=== PATIENT | male | born 1980 | race Caucasian/White ===

== ENCOUNTER → 2020-05-22 10:49 | Outpatient (BNVA) | payer MEDICAID, SELFPAY | PROVIDERS: PCP Internal Medicine; Referring Provider Internal Medicine; Visit Provider Internal Medicine Cardiovascular Disease | DX: I48.0 Paroxysmal atrial fibrillation (principal); E66.01 Morbid (severe) obesity due to excess calories; G47.33 Obstructive sleep apnea (adult) (pediatric) | CPT/HCPCS: 99212 ==

== ENCOUNTER → 2020-07-15 09:58 | Outpatient (BNVA) | payer MEDICAID, SELFPAY | PROVIDERS: PCP Internal Medicine; Referring Provider Internal Medicine Cardiovascular Disease; Visit Provider Nurse Practitioner Family ==

== ENCOUNTER → 2020-09-30 09:40 | Outpatient (BNVA) | payer MEDICAID, SELFPAY | PROVIDERS: PCP Internal Medicine; Visit Provider Nurse Practitioner Family ==

== ENCOUNTER → 2020-11-27 10:49 | Outpatient (BNVA) | payer MEDICAID, SELFPAY | PROVIDERS: PCP Internal Medicine; Referring Provider Internal Medicine; Visit Provider Internal Medicine Cardiovascular Disease | DX: E66.01 Morbid (severe) obesity due to excess calories (principal); Z68.41 Body mass index [BMI] 40.0-44.9, adult | CPT/HCPCS: 93005; 99212 ==

== ENCOUNTER → 2021-04-07 10:24 | Outpatient (BNVA) | payer MEDICAID, SELFPAY | PROVIDERS: PCP Internal Medicine; Referring Provider Internal Medicine; Visit Provider Nurse Practitioner Family ==

== ENCOUNTER → 2021-11-26 10:53 | Outpatient (BNVA) | payer MEDICAID, SELFPAY | PROVIDERS: PCP Internal Medicine; Referring Provider Internal Medicine; Visit Provider Internal Medicine Cardiovascular Disease | DX: I48.0 Paroxysmal atrial fibrillation (principal); Z79.899 Other long term (current) drug therapy | CPT/HCPCS: 93005; 99212 ==

== ENCOUNTER 2021-12-20 09:10 | Emergency (ER) | payer MEDICAID, SELFPAY ==
--- NOTE | 2021-12-20 | ECG_ITS ---
Test Reason : CP Blood Pressure : / mmHG Vent. Rate : 061 BPM Atrial Rate : 061 BPM P-R Int : 154 ms QRS Dur : 084 ms QT Int : 408 ms P-R-T Axes : -01 021 021 degrees QTc Int : 410 ms Normal sinus rhythm Normal ECG When compared with ECG of 27-SEP-2019 10:29, No significant change was found Referred By: Generic ED Physician Electronically Signed By:Korey Renner
--- NOTE | ~2021-12-20 | XR_ITS ---
EXAMINATION: XR CHEST CLINICAL INFORMATION: Shortness of breath. Chest pain. COMPARISON: 09/27/2019 TECHNIQUE: Frontal view of the chest was obtained. FINDINGS: Large body habitus. Lungs are well expanded and without acute abnormality. Pulmonary vascular pattern is normal. No evidence of pulmonary edema or consolidation. Chronic minimal blunting of lateral costophrenic sulci is likely from presence of subpleural fat. Cardiac silhouette has normal size and contour. The visualized skeletal structures are unremarkable. XR/XR chest 1V IMPRESSION: No acute pulmonary disease.
[2021-12-20 09:41] VITALS: BP 122/63; PULSE 57; RESP 16; TEMP 36.8; O2SAT 97; BMI 39.9
--- NOTE | 2021-12-20 09:56 | ED_ITS ---
HPI - Chest Pain General Chief Complaint: Chest Pain Stated Complaint: chest pain Time Seen by Provider: 12/20/21 09:35 Source: patient, RN notes reviewed and old records reviewed Limitations: no limitations History of Present Illness HPI narrative: This is a 41 year male with past medical history of paroxysmal atrial fibrillation presents today with complaints of chest tightness since 08:00AM this morning. Patient reports that while he was in the shower today, he suddenly felt tightness in the left side of his chest which rated 8/10, which radiated into his left shoulder and into his left upper back with associated shortness of breath. His symptoms lasted for 3 minutes and resolved on its own. He denies any syncope. He states that he still has residual left-sided chest tightness, rating his pain as a tight 3/10. Denies any palpitations. He denies any fevers, chills, nausea, abdominal pain, diarrhea, vomiting, or urina ry symptoms. He admits that yesterday he had left shoulder pain, denies any recent trauma or injury. He reports significant family past medical history of cardiac problems, he reports that his father had a CABG x4 in his 40s, and ultimately from cardiac pathology, also reports that his grandmother from congestive heart failure. Patient reports that he had is being followed by his casting tester Dr. Cortes, for paroxysmal a-fib, last seen 11/26/2021. He denies any recent travels, hospitalizations, history of blood clots, or tobacco use. He smokes marijuanaand vapes recreationally. No other complaints or concerns at this time. MD complaint: chest pain Onset (ago): hour(s) Timing of current episode: episodic Prior episodes: No Onset: during rest Pain location: left chest Pain radiation: left arm and back Severity: mild Pain scale (0-10): 3 Quality: tightness Relieving factors: nothing Exacerbating factors: nothing Associated symptoms: dyspnea Treatment prior to arrival: none Risk Factors Coronary artery disease risk factors: family history of CAD before age 50 Thoracic aortic dissection risk factors: none Related Data Home Medications Medication Instructions Recorded Confirmed atenolol 50 mg tablet 50 mg PO DAILY 05/22/20 11/26/21 Allergies Allergy/AdvReac Type Severity Reaction Status Date / Time No Known Allergies Allergy Unverified 02/28/20 14:59 Review of Systems Review of Systems: Constitutional: No Fever, No Chills ENT/Mouth: No sore throat, No Rhinorrhea, No Swallowing Difficulty Eyes: No Eye Pain, No Swelling, No Redness Cardiovascular: +Chest Tightness, +SOB, No Orthopnea, No Edema Respiratory: No Cough, No Sputum, No Wheezing, No dyspnea Gastrointestinal: No Nausea, No Vomiting, No Diarrhea, No abdominal Pain, No Hematochezia, No Melena Genitourinary: No Dysuria, No Urinary Frequency, No Hematuria Musculoskeletal: +Left shoulder pain, No joint pain, No Myalgias Skin: No Skin Lesions, No rash Neuro: No Weakness, No Numbness, No Dizziness, No Headache Psych: No Anxiety/Panic, No Depression Heme/Lymph: No Bruising, No Lymphadenopathy Endocrine: No Polyuria, No Polydipsia PMFSH Past Medical History Medical History Paroxysmal atrial fibrillation Family History Family History Father Cancer Diabetes CVD (cardiovascular disease) Mother No problems noted. 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 Oriented X3. No acute distress. Morbidly obese. Eyes: Pupils equal, round and reactive to light. ENT: Pharynx normal. Neck: Normal inspection. Neck supple. CVS: Chest wall is nontender to palpation. S1S2 regular. Normal heart rate and rhythm. Pulses normal. Respiratory: Lungs clear to auscultation bilaterally, no wheezes, rhonchi or rales. No respiratory distress. Breath sounds normal. Abdomen: Obese abdomen, Soft and nontender. +BS x4 Skin: Skin warm and dry. Normal skin color. Normal skin turgor. No rashes. Extremities: No calf tenderness or swelling. Negative Tatiana's Sign. No lower extremity edema. Neuro: Oriented X 3. No motor deficit. No sensory deficit. Course Course Course Narrative: This is a 41-year-old male, with a past medical history of paroxysmal atrial fibrillation and childhood heart murmur, who presents today with complaints of chest tightness x2 hours prior to his arrival. Plan: - Vital signs are within normal limits, and patient is no acute distress at this time. Will continue to monitor. - EKG today with 61 bpm, with no acute ischemic changes noted when compared to previous EKG performed on 09/27/2019. - CBC, BMP, LFTs, coagulation studies, troponin and chest x-ray ordered. Reevaluation(s) Reevaluation #1: Troponin is negative, will repeat at 13:25. Chest x-ray is negative for pneumonia or any acute pathology. Labs are unremarkable at this time. Patient is PERC negative. Patient is currently asymptomatic, vital signs remained stable and has no concerns or complaints at time. Will continue to monitor. Time: 11:51 Reevaluation #2: Second troponin is negative. Patient is asymptomatic and is requesting to be discharged. Feeling well enough to go to work tomorrow. Lab work, EKG, Chest x- ray negative for cardiac pathology and work up less suspicious for ACS today. Recommended cardiology follow up. Advised to return with any new or worsening symptoms. Patient understands and agrees with this time. Time: 14:13 MDM - Chest Pain Differential Diagnosis Differential diagnosis: Likely unstable angina pectoris, atypical chest pain, st elevation myocardial infarction and chest pain Lab Data Result diagrams: 12/20/21 10:26 12/20/21 10:25 Labs: Lab Results 12/20/21 12/20/21 12/20/21 Range/Units 10:06 10:24 10:25 WBC (4.8-10.8) X10*3/uL RBC (4.60-5.80) X10*6/uL Hgb (14.0-18.0) g/dl Hct (42.0-52.0) % MCV (80.0-98.0) fL MCH (27.0-33.0) pg MCHC (31.0-36.0) g/dl RDW (11.0-16.0) % Plt Count (160-400) X10*3/uL MPV (9.4-12.4) fL Immature Gran % (Auto) (0.0-0.4) % Neut % (Auto) (45-73) % Lymph % (Auto) (20-40) % [place] % (Auto) (2-11) % Eos % (Auto) (0-4) % Baso % (Auto) (0-2) % Lymph # (Auto) (1.2-4.9) X10*3/uL [place] # (Auto) (0.1-1.2) X10*3/uL Eos # (Auto) (0.0-0.4) X10*3/uL Baso # (Auto) (0.0-0.2) X10*3/uL Abs Immat Gran (auto) (0.00-0.03) X10*3/uL Absolute Neuts (auto) (2.0-8.3) x10*3/uL Absolute Nucleated RBC (0.0-0.012) X10*3/uL Nucleated RBC % (auto) (0.0-0.2) /100WBC PT 10.9 (10.0-13.1) SEC INR 1.0 (0.9-1.1) APTT 30.6 (24.1-38.0) SEC Sodium 139 (135-145) mmol/L Potassium 4.4 (3.3-5.1) mmol/L Chloride 106 (96-108) mmol/L Carbon Dioxide 26 (22-29) mmol/L Anion Gap 11 L (12-20) BUN 10 (9-16) mg/dL Creatinine 0.79 (0.5-1.4) mg/dL Estim Creat Clear Calc 187.3 Estimated GFR > 60 Random Glucose 86 (60-115) mg/dL Calcium 9.0 (8.4-10.2) mg/dL Magnesium 2.1 (1.6-2.6) mg/dL Total Bilirubin 1.4 H (0.0-1.0) mg/dL Direct Bilirubin 0.4 (0.0-0.5) mg/dL AST 15 (5-37) U/L ALT 12 (0-40) U/L Alkaline Phosphatase 70 (39-117) U/L Troponin I High Sens (<3.5-35.0) ng/L Total Protein 6.5 (6.5-8.0) g/dL Albumin 4.1 (3.5-5.0) g/dL COVID-19 ([facility]EL[facility]IN) Negative (Negative) COVID-19 Clin Com See Note 12/20/21 12/20/21 12/20/21 Range/Units 10:25 10:26 13:39 WBC 5.1 (4.8-10.8) X10*3/uL RBC 5.20 (4.60-5.80) X10*6/uL Hgb 14.3 (14.0-18.0) g/dl Hct 44.1 (42.0-52.0) % MCV 84.8 (80.0-98.0) fL MCH 27.5 (27.0-33.0) pg MCHC 32.4 (31.0-36.0) g/dl RDW 13.2 (11.0-16.0) % Plt Count 129 L (160-400) X10*3/uL MPV 10.9 (9.4-12.4) fL Immature Gran % (Auto) 0.2 (0.0-0.4) % Neut % (Auto) 60.7 (45-73) % Lymph % (Auto) 23.7 (20-40) % [place] % (Auto) 6.3 (2-11) % Eos % (Auto) 7.9 H (0-4) % Baso % (Auto) 1.2 (0-2) % Lymph # (Auto) 1.2 (1.2-4.9) X10*3/uL [place] # (Auto) 0.3 (0.1-1.2) X10*3/uL Eos # (Auto) 0.4 (0.0-0.4) X10*3/uL Baso # (Auto) 0.1 (0.0-0.2) X10*3/uL Abs Immat Gran (auto) 0.01 (0.00-0.03) X10*3/uL Absolute Neuts (auto) 3.1 (2.0-8.3) x10*3/uL Absolute Nucleated RBC 0.000 (0.0-0.012) X10*3/uL Nucleated RBC % (auto) 0.0 (0.0-0.2) /100WBC PT (10.0-13.1) SEC INR (0.9-1.1) APTT (24.1-38.0) SEC Sodium (135-145) mmol/L Potassium (3.3-5.1) mmol/L Chloride (96-108) mmol/L Carbon Dioxide (22-29) mmol/L Anion Gap (12-20) BUN (9-16) mg/dL Creatinine (0.5-1.4) mg/dL Estim Creat Clear Calc Estimated GFR Random Glucose (60-115) mg/dL Calcium (8.4-10.2) mg/dL Magnesium (1.6-2.6) mg/dL Total Bilirubin (0.0-1.0) mg/dL Direct Bilirubin (0.0-0.5) mg/dL AST (5-37) U/L ALT (0-40) U/L Alkaline Phosphatase (39-117) U/L Troponin I High Sens < 3.5 < 3.5 (<3.5-35.0) ng/L Total Protein (6.5-8.0) g/dL Albumin (3.5-5.0) g/dL COVID-19 ([facility]ELVIN) (Negative) COVID-19 Clin Com ECG Data ECG #1: ECG interpretation date: 12/20/21 ECG interpretation time: 09:04 Prior ECG tracings: available for review Interpretation: Normal sinus rhythm at 61 BPM, SD interval 154ms, and QT/QTC 408/410, no acute ischemic changes, no ST elevation or depression noted. Discharge Plan Discharge Clinical Impression: Atypical chest pain Patient Disposition: Home, Self-Care Instructions: Chest Pain (ED) Additional Instructions: Your chest x-ray did not show any signs of heart attack or have any concerning findings. Your heart enzymes were negative twice today which is reassuring that your symptoms are not cardiac related. It is unlikely that your symptoms are cardiac related. If you have any new, worsening or changes in your symptoms, please return for a re-evaluation. Follow up with your casting tester. If you develop new or worsening symptoms call 911 or come back to the ER for further evaluation. Prescriptions: No Action atenolol 50 mg tablet 50 mg PO DAILY Interventions: ED Discharge Assessment Last Done: 12/20/21 14:17 Discharge Date/Time: 12/20/21 14:18
[2021-12-20 10:03] VITALS: BP 107/58; PULSE 50; RESP 16; TEMP 36.9; O2SAT 96
[2021-12-20 10:30] LABS: MANUAL DIFF FLAG NO
[2021-12-20 10:35] LABS: Basophils Absolute Auto 0.1 X10*3/uL (0.0-0.2); Basophils Percent Auto 1.2 % (0-2); Eosinophils Absolute Auto 0.4 X10*3/uL (0.0-0.4); Eosinophils Percent Auto 7.9 % (0-4); Hematocrit 44.1 % (42.0-52.0); Hemoglobin 14.3 g/dl (14.0-18.0); Imm Gran Abs Auto 0.01 X10*3/uL (0.00-0.03); Imm Gran Pct Auto 0.2 % (0.0-0.4); Lymphocytes Absolute Auto 1.2 X10*3/uL (1.2-4.9); Lymphocytes Percent Auto 23.7 % (20-40); Mean Corpuscular HGB Conc 32.4 g/dl (31.0-36.0); Mean Corpuscular Hemoglobin 27.5 pg (27.0-33.0); Mean Corpuscular Volume 84.8 fL (80.0-98.0); Mean Platelet Volume 10.9 fL (9.4-12.4); Monocytes Absolute Auto 0.3 X10*3/uL (0.1-1.2); Monocytes Percent Auto 6.3 % (2-11); Neutrophils Absolute Auto 3.1 x10*3/uL (2.0-8.3); Neutrophils Percent Auto 60.7 % (45-73); Platelet Count 129 X10*3/uL (160-400); Red Cell Distribution Width 13.2 % (11.0-16.0); White Blood Count 5.1 X10*3/uL (4.8-10.8)
[2021-12-20 10:38] LABS: Prothrombin Time 10.9 SEC (10.0-13.1)
[2021-12-20 10:41] LABS: Partial Thromboplastin Time 30.6 SEC (24.1-38.0)
[2021-12-20 10:47] LABS: COVID-19 Test Negative (Negative); IDNOW Serial# 16C4AD1C
[2021-12-20 10:56] LABS: Alanine Aminotransferase 12 U/L (0-40); Albumin Level 4.1 g/dL (3.5-5.0); Alkaline Phosphatase 70 U/L (39-117); Anion Gap 11 (12-20); Aspartate Amino Transferase 15 U/L (5-37); Bilirubin Direct 0.4 mg/dL (0.0-0.5); Bilirubin Total 1.4 mg/dL (0.0-1.0); Blood Urea Nitrogen 10 mg/dL (9-16); Carbon Dioxide 26 mmol/L (22-29); Chloride 106 mmol/L (96-108); Creatinine Clr Calc Pharmacy 187.3; Estimated Glomerular Filt Rate > 60; Glucose Random 86 mg/dL (60-115); Magnesium 2.1 mg/dL (1.6-2.6); Potassium 4.4 mmol/L (3.3-5.1); Sodium 139 mmol/L (135-145); Total Protein 6.5 g/dL (6.5-8.0)
[2021-12-20 11:02] LABS: Troponin-I High Sensitivity < 3.5 ng/L (<3.5-35.0)
[2021-12-20 14:04] LABS: Troponin-I High Sensitivity < 3.5 ng/L (<3.5-35.0)
[2021-12-20 14:17] VITALS: BP 120/60; PULSE 55; RESP 16; TEMP 36.8; O2SAT 99
== END 2021-12-20 14:18 | disposition home or self-care (01) ==
PROVIDERS: Physician Assistant; Emergency Provider Emergency Medicine; PCP Internal Medicine
DX: R07.89 Other chest pain (principal); I48.0 Paroxysmal atrial fibrillation; E66.01 Morbid (severe) obesity due to excess calories; F17.200 Nicotine dependence, unspecified, uncomplicated; F12.90 Cannabis use, unspecified, uncomplicated; Z20.822 Contact with and (suspected) exposure to COVID-19
CPT/HCPCS: 36415; 71045; 80048; 80076; 83735; 84484; 85025; 85610; 85730; 87635; 93005; 99284; 99285

== ENCOUNTER → 2022-12-02 12:28 | Outpatient (BNVA) | payer MEDICAID, SELFPAY | PROVIDERS: PCP Internal Medicine; Referring Provider Internal Medicine; Visit Provider Internal Medicine Cardiovascular Disease | DX: I48.0 Paroxysmal atrial fibrillation (principal); E66.01 Morbid (severe) obesity due to excess calories; Z68.39 Body mass index [BMI] 39.0-39.9, adult | CPT/HCPCS: 93005 ==

== ENCOUNTER 2023-04-20 08:32 | Emergency (ER) | payer OTHER, SELFPAY ==
[2023-04-20 08:42] VITALS: BP 153/93; PULSE 62; RESP 16; TEMP 36.4; O2SAT 98; BMI 41.0
[2023-04-20 09:01] LABS: MANUAL DIFF FLAG NO
[2023-04-20 09:02] LABS: Basophils Absolute Auto 0.1 X10*3/uL (0.0-0.2); Basophils Percent Auto 0.8 % (0-2); Eosinophils Absolute Auto 0.4 X10*3/uL (0.0-0.4); Eosinophils Percent Auto 3.5 % (0-4); Hematocrit 48.5 % (42.0-52.0); Hemoglobin 15.6 g/dl (14.0-18.0); Imm Gran Abs Auto 0.02 X10*3/uL (0.00-0.03); Imm Gran Pct Auto 0.2 % (0.0-0.4); Lymphocytes Percent Auto 9.9 % (20-40); Mean Corpuscular HGB Conc 32.2 g/dl (31.0-36.0); Mean Corpuscular Hemoglobin 28.1 pg (27.0-33.0); Mean Corpuscular Volume 87.2 fL (80.0-98.0); Mean Platelet Volume 10.3 fL (9.4-12.4); Monocytes Absolute Auto 0.6 X10*3/uL (0.1-1.2); Monocytes Percent Auto 5.8 % (2-11); Neutrophils Absolute Auto 7.9 x10*3/uL (2.0-8.3); Neutrophils Percent Auto 79.8 % (45-73); Platelet Count 160 X10*3/uL (160-400); Red Blood Count 5.56 X10*6/uL (4.60-5.80); Red Cell Distribution Width 13.1 % (11.0-16.0)
[2023-04-20 09:18] LABS: Alanine Aminotransferase 23 U/L (0-40); Albumin Level 4.5 g/dL (3.5-5.0); Alkaline Phosphatase 64 U/L (39-117); Anion Gap 11 (12-20); Aspartate Amino Transferase 27 U/L (5-37); Bilirubin Total 1.6 mg/dL (0.0-1.0); Blood Urea Nitrogen 13 mg/dL (9-16); Calcium 9.9 mg/dL (8.4-10.2); Carbon Dioxide 31 mmol/L (22-29); Chloride 104 mmol/L (96-108); Creatinine Clr Calc Pharmacy 133.5; Estimated Glomerular Filt Rate > 60; Glucose Random 113 mg/dL (60-115); Potassium 4.4 mmol/L (3.3-5.1); Sodium 142 mmol/L (135-145); Total Protein 7.6 g/dL (6.5-8.0)
[2023-04-20 10:02] VITALS: BP 110/57; PULSE 58; RESP 16; O2SAT 96
--- NOTE | 2023-04-20 10:28 | ED.ABDPAIN ---
HPI - Abdominal Pain General Chief Complaint: Abdominal Pain Stated Complaint: Abd pain/Back pain Time Seen by Provider: 04/20/23 09:38 Source: patient Mode of arrival: ambulatory History of Present Illness HPI narrative: 43-year-old male with history of renal colic presents with pain in his right abdomen which then became very sharp in states that he was not able to tolerate. He denies any associated nausea, vomiting, fever, chills. He denies dysuria. At the time of my interview patient states that the pain has completely subsided. Related Data Previous Rx's Medication Instructions Recorded atenolol 50 mg tablet 50 mg PO DAILY #90 tabs 09/29/22 tamsulosin 0.4 mg capsule (Flomax) 0.4 mg PO BEDTIME #4 caps 04/20/23 Allergies Allergy/AdvReac Type Severity Reaction Status Date / Time No Known Allergies Allergy Unverified 04/20/23 08:42 Review of Systems Review of Systems Pertinent positives and negatives as stated in HPI PMFSH Past Medical History Source: nursing notes reviewed Medical History Paroxysmal atrial fibrillation ASIYA (obstructive sleep apnea) Paroxysmal atrial fibrillation Morbid obesity Family History Family History Father Cancer Diabetes CVD (cardiovascular disease) Mother No problems noted. Social History Social History Household Members Other:: MOTHER Alcohol intake: current Alcohol intake frequency: does not drink Patient Tobacco Use Status: Current everyday Tobacco user Tobacco use type: Smokeless Tobacco Smoked in Last 30 Days: Yes e-Cigarette/Vaping Use: Currently Using Use of substances other than those prescribed or required for medical reasons: Yes Substance Use Type: Marijuana Substance Use Frequency: Daily Advance Directives: No Advance Directives Information Provided: No Current occupational status: employed Current occupation: [employer] Physical Exam ED Vital Signs: Vital Signs - 24 hr 04/20/23 08:42 04/20/23 10:02 Temperature 97.6 F Pulse Rate 62 58 Respiratory Rate 16 16 Blood Pressure 153/93 H 110/57 L Pulse Oximetry 98 96 Oxygen Delivery Method Room Air Room Air BMI result Body Mass Index 41.0 VITAL SIGNS: Reviewed. GENERAL: Well developed, well nourished, in no acute distress. HEAD: Normocephalic/atraumatic EYES: PERRLA, EOMI EARS: Ext canals without abnormality NOSE: Nares patent bilateral OROPHARYNX: no oral lesions noted, posterior pharynx clear NECK: Supple, no adenopathy LUNGS: Normal breath sounds. No adventitious sounds or accessory muscle use. SpO2<96> CARDIOVASCULAR: Regular rate and rhythm without noted murmurs ABDOMEN: Soft, no keno writer/runner per quadrant pain, no Cates's, no CVA tenderness, non-distended with bowel sounds. MUSCULOSKELETAL: No tenderness, deformities, or effusions noted on gross inspection. EXTREMITIES: No cyanosis, clubbing or edema. SKIN: Inspection of the skin reveals no rashes NEUROLOGIC: Alert and oriented x 4. Strength and sensation to light touch were grossly intact x 4. Medical Decision Making Medical Decision Making [facility] Narrative: 43-year-old male with history and clinical presentation, DDX: Renal colic, doubt cholecystitis, UTI/pyelonephritis I reviewed all investigations and hematologic indices are negative for leukocytosis, there is no anemia or thrombocytopenia. Chemistry indices do not demonstrate VANESA and there is no electrolyte or transaminases derangements, patient has chronically elevated total bilirubin. Urinalysis is significant for hematuria but no evidence of infection Patient is pain-free at this time, but will be discharged on 4 days of Flomax and given a referral to follow-up with urology. Differential Diagnosis Differential Diagnoses: The differential diagnosis associated with the presentation includes Please see the discussion above Admission/Observation Consideration of admission/observation: Escalation of care including admission/observation considered Please see the discussion above Lab Data [facility] Lab Attestation statement: I reviewed the patient's lab results. Please see the discussion above 04/20/23 08:57 04/20/23 08:57 Labs: Lab Results 04/20/23 04/20/23 Range/Units 08:57 10:10 WBC 10.0 (4.8-10.8) X10*3/uL RBC 5.56 (4.60-5.80) X10*6/uL Hgb 15.6 (14.0-18.0) g/dl Hct 48.5 (42.0-52.0) % MCV 87.2 (80.0-98.0) fL MCH 28.1 (27.0-33.0) pg MCHC 32.2 (31.0-36.0) g/dl RDW 13.1 (11.0-16.0) % Plt Count 160 (160-400) X10*3/uL MPV 10.3 (9.4-12.4) fL Immature Gran % (Auto) 0.2 (0.0-0.4) % Neut % (Auto) 79.8 H (45-73) % Lymph % (Auto) 9.9 L (20-40) % [place] % (Auto) 5.8 (2-11) % Eos % (Auto) 3.5 (0-4) % Baso % (Auto) 0.8 (0-2) % Lymph # (Auto) 1.0 L (1.2-4.9) X10*3/uL [place] # (Auto) 0.6 (0.1-1.2) X10*3/uL Eos # (Auto) 0.4 (0.0-0.4) X10*3/uL Baso # (Auto) 0.1 (0.0-0.2) X10*3/uL Abs Immat Gran (auto) 0.02 (0.00-0.03) X10*3/uL Absolute Neuts (auto) 7.9 (2.0-8.3) x10*3/uL Absolute Nucleated RBC 0.000 (0.0-0.012) X10*3/uL Nucleated RBC % (auto) 0.0 (0.0-0.2) /100WBC Sodium 142 (135-145) mmol/L Potassium 4.4 (3.3-5.1) mmol/L Chloride 104 (96-108) mmol/L Carbon Dioxide 31 H (22-29) mmol/L Anion Gap 11 L (12-20) BUN 13 (9-16) mg/dL Creatinine 1.10 (0.5-1.4) mg/dL Estim Creat Clear Calc 133.5 Estimated GFR > 60 Random Glucose 113 (60-115) mg/dL Calcium 9.9 D (8.4-10.2) mg/dL Total Bilirubin 1.6 H (0.0-1.0) mg/dL AST 27 (5-37) U/L ALT 23 (0-40) U/L Alkaline Phosphatase 64 (39-117) U/L Total Protein 7.6 (6.5-8.0) g/dL Albumin 4.5 (3.5-5.0) g/dL Urine Color Yellow Urine Appearance Clear Urine pH 6.0 (5.0-9.0) Ur Specific [place] 1.020 (1.005-1.025) Urine Protein Trace (Neg-Trace) mg/dL Urine Glucose (UA) Negative (Negative) mg/dL Urine Ketones Negative (Negative) mg/dL Urine Blood Large (3+) H (Negative) Urine Nitrite Negative (Negative) Ur Leukocyte Esterase Trace H (Negative) Urine RBC >20 H (0-2) /HPF Urine WBC 0-5 (0-5) /HPF Ur Squamous Epith Cells 0-2 (0-2) /HPF Urine Bacteria None Seen (None Seen) Hyaline Casts 3-5 (0-2) /LPF External Record Review External record reviewed: Outpatient record, Prior outpatient labs and Prior outpatient radiology Chronic Conditions Patient?s care impacted by: Other Paroxysmal atrial fibrillation Discharge Plan Discharge Clinical Impression: Renal colic Patient Disposition: Home, Self-Care Instructions: Renal Colic (ED) Additional Instructions: 1. Resume all home medications as prescribed. Continue to drink plenty of water and avoid caffeinated/carbonated beverages. 2. You have been provided with a prescription for Flomax as well as a referral to follow-up with urology. You will require an additional referral from your primary care provider. Return to the ER for any worsening symptoms. Prescriptions: New tamsulosin [Flomax] 0.4 mg capsule 0.4 mg PO BEDTIME Qty: 4 0RF No Action atenolol 50 mg tablet 50 mg PO DAILY Qty: 90 3RF
[2023-04-20 10:35] LABS: Appearance Urine Clear; Color Urine Yellow; Glucose Urine UA Negative (Negative); Leukocyte Esterase Urine Trace (Negative); Nitrite Urine Negative (Negative); UMIC TRIGGER UACC YES; Urine Blood Large (3+) (Negative); Urine Ketones Negative (Negative); Urine Protein Trace mg/dL (Neg-Trace)
[2023-04-20 10:37] LABS: Bacteria Urine None Seen (None Seen); RBC Urine >20 /HPF (0-2); Squamous Epithelial Cell Urine 0-2 /HPF (0-2); WBC Urine 0-5 /HPF (0-5)
== END 2023-04-20 10:58 | disposition home or self-care (01) ==
PROVIDERS: Emergency Provider Student in an Organized Health Care Education/Training Program
DX: N23 Unspecified renal colic (principal); M54.50 Low back pain, unspecified; F17.210 Nicotine dependence, cigarettes, uncomplicated; Z71.6 Tobacco abuse counseling
CPT/HCPCS: 36415; 51798; 80053; 81001; 85025; 99283; 99285

== ENCOUNTER 2023-11-29 15:16 | Outpatient (AMB) | payer OTHER, SELFPAY ==
[2023-11-29 15:41] VITALS: BP 110/72; PULSE 58; BMI 38.8
--- NOTE | 2023-11-29 15:41 | A.OFFVIS_ITS ---
Vital Signs 11/29/23 15:41 Height 6 ft 3 in Weight 310 lb 13.628 oz BMI 38.8 BP 110/72 Blood Pressure Location Lt brachial Position Sitting Pulse 58 Intake Visit Reasons: 1 year fu after echo (rs) Intake Note: 1 year follow-up after echo with ekg hearts doing good Allergies No Known Allergies Allergy (Unverified 04/20/23 08:42) Medication List - Last Reconciled 11/29/23 by Guero Cortes MD atenolol 50 mg PO DAILY tamsulosin (Flomax) 0.4 mg PO BEDTIME HPI Comments Details: Fermin comes for follow-up. He has not had any significant cardiac complaints at this point time. Denies any recurrent atrial fibrillation symptoms. Was told that he might have sleep apnea but said he could not do read beat study with CPAP. He is also having struggles with weight loss. Denies any worsening heart failure symptoms. Denies any anginal symptoms. No lightheadedness, syncope. Takes atenolol every day. Did not have a echocardiogram recently. [facility] Medical History Paroxysmal atrial fibrillation ASIYA (obstructive sleep apnea) Paroxysmal atrial fibrillation Morbid obesity Family History Father Cancer Diabetes CVD (cardiovascular disease) Mother No problems noted. 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[employer] Review of Systems Const Denies chills, Denies fatigue, Denies fever(s), Denies frequent falls, Denies weakness, Denies weight gain and Denies weight loss ENT Denies dizziness Card Denies chest pain, Denies leg edema, Denies lightheadedness, Denies palpitations, Denies dyspnea, Denies dyspnea on exertion, Denies orthopnea and Denies other (loss of consciousness) Resp Denies cough, Denies dyspnea and Denies dyspnea on exertion GI Denies hematochezia and Denies change in stool character Musc Denies abnormal gait, Denies muscle weakness, Denies numbness, Denies radiating pain into limb and Denies tingling Neuro Denies abnormal gait, Denies dizziness, Denies frequent falls, Denies numbness, Denies tingling and Denies weakness Endo Denies fatigue and Denies palpitations Physical Exam Vital Signs: Last Vital Signs Pulse 58 11/29/23 15:41 BP 110/72 11/29/23 15:41 BMI result Body Mass Index 38.8 Const General: cooperative, comfortable, no acute distress, alert and awake Nutritional Appearance: obese morbidly obese Orientation/consciousness: patient oriented x3 Limitations: no limitations Neck Neck: Yes trachea midline, Yes supple and Yes no JVD Resp Effort & Inspection: normal respiratory effort Auscultation: clear to auscultation bilaterally Cardio Jugular venous distension: no JVD Palpation: normal PMI Rate: regular rate Rhythm: regular rhythm Heart sounds: S1 normal heart sound present and S2 normal heart sound present GI Auscultation: normal bowel sounds Neuro General: patient oriented x3 and no focal motor deficits Extrem General: Yes no clubbing, cyanosis or edema Office Procedures EKG Details: EKG shows normal sinus rhythm with normal EKG [id number], Complete Assessment & Plan Assessment & Plan (1) Paroxysmal atrial fibrillation: Code(s): I48.0 - Paroxysmal atrial fibrillation Category: Medical Plan: Paroxysmal atrial fibrillation with no clinical recurrence. Has done well with atenolol therapy. However he has untreated sleep apnea and significant obesity which both impact his long-term recurrence and risk of atrial fibrillation again. Advise echocardiogram near future to assess for cardiac structure and function biatrial chamber size. Continue atenolol therapy. Avoidance of stimulants was discussed. Aggressive weight loss program was discussed. He said he is having struggles with it. Will refer him to bariatric surgical program for further assessment and treatment. Also suggest consideration of treatment for sleep apnea which should help with prevention of recurrent atrial fibrillation. Follow up in the clinic in 1 year's time, sooner p.r.n.. Thank you for allowing me to partake in his care Orders: Orders CA echo transthoracic complete Today I48.0 - Paroxysmal atrial fibrillation Referrals Bariatric Surgery Referral E66.01 - Morbid (severe) obesity due to excess calories Medications: Refilled atenolol 50 mg PO DAILY 90 tabs 3RF Coding Level of Care Code Est Pt Level 4 (14480) Diagnoses Paroxysmal atrial fibrillation I48.0 CPT Codes EKG - CPT: 80645-[id number], Complete ([id number])
== END 2023-11-29 16:06 | disposition home or self-care (01) ==
PROVIDERS: Visit Provider Internal Medicine Cardiovascular Disease
DX: I48.0 Paroxysmal atrial fibrillation (principal)
CPT/HCPCS: 93010; 99214

== ENCOUNTER → 2023-11-29 15:16 | Outpatient (BNVA) | payer OTHER, SELFPAY | PROVIDERS: Visit Provider Internal Medicine Cardiovascular Disease | DX: I48.0 Paroxysmal atrial fibrillation (principal) | CPT/HCPCS: 93005 ==

== ENCOUNTER → 2023-12-06 13:21 | Outpatient (BNVA) | payer OTHER, SELFPAY | PROVIDERS: Visit Provider Physician Assistant Surgical ==

== ENCOUNTER → 2025-01-28 14:51 | Outpatient (REF) | payer OTHER, SELFPAY ==
--- NOTE | 2025-01-28 14:54 | CA_ITS ---
Transthoracic Echocardiogram Patient (Last, First, Middle): Fermin Bridges D Gender: Male Date of : 1980 Age: 44 Procedure Date: 01/28/2025 Procedure Type: Transthoracic Echocardiogram Location: OP Height: 190.5 cm Weight: 140.62 kg BSA: 2.64 m2 Heart Rate: 68 bpm BP: 110 / 72 mmHg Sinter Press Operator: JULY Referring MD: Guero Cortes MD Driller Operator: Guero Cortes MD Symptoms: I48.0 - Paroxysmal atrial fibrillation Study Quality: Adequate ECG Rhythm: Sinus Conclusions: - 1. Hyperdynamic LV EF of greater than 70% 2. Normal cardiac valvular Doppler 3. Upper limits of normal ascending aortic size 4. No pericardial effusion Findings Procedure Information Contrast agent, definity, is being given per protocol without apparent complications. Left Ventricle Normal left ventricular cavity size. There is normal left ventricular wall thickness. The left ventricular systolic function is hyperdynamic. The visually estimated ejection fraction is >70%. There is no dynamic left ventricular outflow tract obstruction. Spectral Doppler is indicative of a normal filling pattern. There is mild septal asymmetric hypertrophy. Right Ventricle Normal right ventricular cavity size and systolic function. Atria Both atria are normal in size. Aortic Valve There is mild calcification of the aortic valve. There is no aortic valve stenosis. There is no aortic valve regurgitation. Mitral Valve Normal mitral valve structure and function. There is trace mitral valve regurgitation. There is no mitral valve stenosis. Pulmonic Valve The pulmonic valve is likely normal. Tricuspid Valve Likely normal tricuspid valve structure and function. Tricuspid regurgitation envelope is inadequate for calculation of right ventricular systolic pressure. Normal right atrial pressure. Great Vessels All visible segments of the aorta are normal in size. The pulmonary artery was not well visualized. Venous The inferior vena cava is normal in size and collapses greater than 50% with inspiration. Pericardium/Pleural There is no evidence of pericardial effusion. Prior Study Comparison No significant change compared to prior study dated: 10/30/2019. Measurements 2D Linear Measurements IVSd: 1.27 0.6-0.9/0.6-1.0 cm LVIDd: 5.51 3.9-5.3/4.2-5.9 cm LVIDd Index: 2.09 2.4-3.2/2.2-3.1 cm/m2 LVIDs: 3.26 2.0-3.6 cm LVPWd: 0.72 0.7-1.1 cm LA Diam: 4.10 2.7-3.8/3.0-4.0 cm LAIDs Index: 1.55 1.5-2.3 cm/m2 LV Mass: 264.95 67-162/88-224 g LV Mass Index: 100.36 43-95/49-115 g/m2 LVOT Diam: 2.60 3.0+(-)1.3 cm 2D Systolic Function EF 4C: 74.80 >55% EF 2C: 75.90 >55% EF BiP: 75.50 >55% Mitral Valve MV Pk E: 1.03 MV PK A: 0.63 MV Decel Time: 194.00 E/A: 1.60 E'Lateral: 8.38 E'Medial: 9.79 E/E' Med: 10.50 E/E' Lat: 12.30 PHT: 57.00 MVA PHT: 3.86 Decel [place]: 5.33 Aortic Valve AoV Pk Corey: 1.53 AoV Pk Grad: 9.00 AVRIL: 4.16 LVOT LVOT Pk Corey: 1.14 LVOT Mn Corey: 0.82 LVOT VTI: 0.28 LVOT Pk Grad: 5.00 LVOT Mn Grad: 3.00 LVOT Diam: 2.60 LVOT Area: 5.31 Diastolic Function MV Pk E: 1.03 MV Pk A: 0.63 E/A: 1.60 E'Medial: 9.79 E/E' Med: 10.50 E' Laterial: 8.38 E/E' Lat: 12.30 Right Ventricle TAPSE (mm): 32.70 TVS' Corey: 14.00 Great Vessels Aorta Sinus of Valsalva: 4.00 2.0-3.5 cm Ao Asc: 3.70 2.1-3.4 cm Ao Arch: 3.00 Pulmonary Veins Pulm Vein S/D 1.10 Pulmonary Valve PV Pk Corey: 0.89 Peak PV Grad: 3.00 Updated in Other Vendor System with Status of Final Guero Cortes MD electronically signed on 01/29/2025 11:31:08 AM with status of Final
--- OUTSIDE RECORDS SUMMARY | 2025-01-28 15:32 | XMS_ITS | Clinical Summary ---
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 Name Role Phone Unavailable Primary Care Provider Unavailabl e Medications atenolol (Tenormin) 50 MG tablet take 1 tablet by oral route every day 10/22/2021 Active Social History Tobacco Use Types Packs/Day Years Used Date Smoking Tobacco: Never Assessed Sex and Gender Information Value Date Recorded Sex Assigned at Male 04/12/2022 10:17 AM EDT Legal Sex Male 10:17 AM EDT Gender Identity Not on file Sexual Orientation Not on file Plan of Treatment Health Maintenance Due Date Last Done Comments CT Colonography 1980 Colonoscopy 1980 Colorectal Cancer Screening 1980 Depression Screening 1980 FIT DNA/Cologuard 1980 FIT 1980 FOBT 1980 Lipid Panel 1980 Sigmoidoscopy 1980 Disability Screening 1979 Alcohol/Substance Use Screening 1991 Tobacco Screening 1991 Family Planning (PISQ) 1994 HPV Vaccines (1 - Male 3-dos e series) 1994 DTaP/Tdap/Td Vaccines (1 - Tdap) 1998 Hepatitis B Vaccines (1 of 3 - 19+ 3-dose series) 1998 COVID-19 Vaccine (3 - 2023-2 5 season) 2024 04/18/2022, 04/29/2021 Influenza Vaccine (#1) 2025 04/18/2022 Zoster Vaccines (1 of 2) 2029 RSV Patients and Patients Aged 60 years or older (1 - 1-dose 75+ series) 2054 HIB Vaccines Aged Out No longer eligi ble based on patient's age to complete this topic Hepatitis A Vaccines Aged Out No long er eligible based on patient's age to complete this topic IPV Vaccines Aged Out No longer eligi ble based on patient's age to complete this topic Meningococcal B Vaccine Aged Out No l onger eligible based on patient's age to complete this topic Meningococcal Vaccine Aged Out No mariah ryan eligible based on patient's age to complete this topic Pneumococcal Vaccine: Pediatrics (0 to 5 Years) and At-Risk Patients (6 to 49) Years Aged Out No longer eligible b ased on patient's age to complete this topic RSV under 20 months Aged Out No longe r eligible based on patient's age to complete this topic Rotavirus Vaccines Aged Out No longer eligible based on patient's age to complete this topic
== END ==
LOC: HO.CARD 14:51
PROVIDERS: Visit Provider Internal Medicine Cardiovascular Disease
DX: I48.0 Paroxysmal atrial fibrillation (principal); G47.33 Obstructive sleep apnea (adult) (pediatric)
CPT/HCPCS: 93306; Q9957

== ENCOUNTER → 2025-01-28 14:54 | Outpatient (BNV) | payer OTHER, SELFPAY | PROVIDERS: Visit Provider Internal Medicine Cardiovascular Disease | DX: I42.2 Other hypertrophic cardiomyopathy (principal); I35.8 Other nonrheumatic aortic valve disorders; I51.89 Other ill-defined heart diseases | CPT/HCPCS: 93306 ==

== ENCOUNTER 2025-02-04 14:46 | Outpatient (AMB) | payer OTHER, SELFPAY ==
--- NOTE | 2025-02-04 14:51 | A.OFFVIS_ITS ---
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 He has been doing well. No episodes of atrial fibrillation. Taking his medications. Unfortunately he is not able to use his CPAP as he said he sleeps on his side and he is not able to adjust his mask. He feels very tired and fatigued since his job has changed and has required a lot of thinking. He also has not been able to lose much weight. He said he was not able to go through with the bariatric surgical program as there was no clear psychological/medical weight loss part. His recent echocardiogram shows normal LV ejection fraction without any major valvular abnormalities. [facility] Medical History Paroxysmal atrial fibrillation ASIYA (obstructive sleep apnea) Paroxysmal atrial fibrillation Morbid obesity Surgical History Hx of wisdom tooth extraction Family History Father Cancer Diabetes CVD (cardiovascular disease) Mother No problems noted. 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[employer] Review of Systems Const Denies chills, Reports fatigue, Denies fever(s), Denies frequent falls, Denies weakness, Denies weight gain and Denies weight loss ENT Denies dizziness Card Denies chest pain, Denies leg edema, Denies lightheadedness, Denies palpitations, Denies dyspnea, Denies dyspnea on exertion, Denies orthopnea and Denies other (loss of consciousness) Resp Denies cough, Denies dyspnea and Denies dyspnea on exertion GI Denies hematochezia and Denies change in stool character Musc Denies abnormal gait, Denies muscle weakness, Denies numbness, Denies radiating pain into limb and Denies tingling Neuro Denies abnormal gait, Denies dizziness, Denies frequent falls, Denies numbness, Denies tingling and Denies weakness Endo Reports fatigue and Denies palpitations Physical Exam Vital Signs: Last Vital Signs Pulse 68 02/04/25 14:52 BP 128/78 02/04/25 14:52 BMI result Body Mass Index 42.2 Const General: cooperative, comfortable, no acute distress, alert and awake Nutritional Appearance: obese morbidly obese Orientation/consciousness: patient oriented x3 Limitations: no limitations Neck Neck: Yes trachea midline, Yes supple and Yes no JVD Resp Effort & Inspection: normal respiratory effort Auscultation: clear to auscultation bilaterally Cardio Jugular venous distension: no JVD Palpation: normal PMI Rate: regular rate Rhythm: regular rhythm Heart sounds: S1 normal heart sound present and S2 normal heart sound present GI Auscultation: normal bowel sounds Neuro General: patient oriented x3 and no focal motor deficits Extrem General: Yes no clubbing, cyanosis or edema Office Procedures EKG Details: EKG shows normal sinus rhythm with small Q-waves in lead 3 and AVF most likely pseudo infarct pattern from obesity 29053-[id number], Complete Assessment & Plan Assessment & Plan (1) Paroxysmal atrial fibrillation: Code(s): I48.0 - Paroxysmal atrial fibrillation Category: Medical Plan: Paroxysmal atrial fibrillation in this middle-aged man most likely related to morbid obesity and untreated sleep apnea. Currently suppressed on atenolol therapy. Continue the same. Continue to avoid stimulants. Needs treatment for sleep apnea given his severe sleep apnea although he is very reluctant to pursue CPAP therapy. We discussed the alternatives with inspire device, he is currently not interested. He would benefit from aggressive weight loss program, see below. (2) Morbid obesity: Code(s): E66.01 - Morbid (severe) obesity due to excess calories Category: Medical Plan: Morbid obesity, which is contributing to a lot of his comorbidities including sleep apnea and atrial fibrillation discussed with him the importance of aggressive weight loss program. He is interested but does not want to just s traight jump into bariatric surgery. I described that this would not be the case and he would go through with the medical weight loss part and learning to manage his calories and his eating patterns prior to pursuing if he agrees to undergo bariatric surgery. We discussed about alternative approaches with GLP 1 antagonist. He is currently wants to pursue medical weight loss path. Will follow with him in his year's time, sooner p.r.n.. Thank you for allowing me to partake in his care Coding Level of Care Code Est Pt Level 4 (86688) Complex EM visit Add On G2211 Diagnoses Paroxysmal atrial fibrillation I48.0 Morbid obesity E66.01 CPT Codes EKG - CPT: 21199-[id number], Complete ([id number])
[2025-02-04 14:52] VITALS: BP 128/78; PULSE 68; BMI 42.2
--- OUTSIDE RECORDS SUMMARY | 2025-02-04 16:28 | XMS_ITS | Clinical Summary ---
Author Organization [email or web address] Address [address] [place] [address] Care Team Providers Care Curing Machine Operator Name Role Phone Unavailable Primary Care Provider [...]
== END 2025-02-04 15:20 | disposition home or self-care (01) ==
LOC: HO.HCS 14:48
PROVIDERS: Visit Provider Internal Medicine Cardiovascular Disease
DX: I48.0 Paroxysmal atrial fibrillation (principal); E66.01 Morbid (severe) obesity due to excess calories
CPT/HCPCS: 93010; 99214

== ENCOUNTER → 2025-02-04 14:46 | Outpatient (BNVA) | payer OTHER, SELFPAY | PROVIDERS: Visit Provider Internal Medicine Cardiovascular Disease | DX: I48.0 Paroxysmal atrial fibrillation (principal) | CPT/HCPCS: 93005 ==

== ENCOUNTER 2025-05-06 10:34 | Outpatient (AMB) | payer OTHER, SELFPAY ==
--- NOTE | 2025-05-06 11:02 | MHC.OFFVISWM ---
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 Allergies No Known Allergies Allergy (Verified 05/06/25 11:20) Medication List - Last Reconciled 05/06/25 by Yung Coulter MD atenolol 50 mg PO DAILY 90 days HPI Comments Details: Previous weight loss efforts: Keto diet (lost 60lbs) Wakes up: 3.30am, Sleeps: 6pm Breakfast: skips Lunch: 1pm (chips) Dinner: 4-6pm (chicken tenders or nuggets) Snacks: 3pm (chips or cookies) Exercise: Recumbent bike that tracks calories Beverages: Coffee/Tea: none, Soda: 1 bottle of regular Coke x3-4/wk, Juice: none, ETOH: none PFSH Medical History Paroxysmal atrial fibrillation ASIYA (obstructive sleep apnea) Paroxysmal atrial fibrillation Morbid obesity Surgical History Hx of wisdom tooth extraction Family History Father Cancer Diabetes CVD (cardiovascular disease) Mother No problems noted. 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[employer] Physical Exam Vital Signs: Last Vital Signs Temp 97.2 F 05/06/25 11:07 Pulse 64 05/06/25 11:07 BP 123/67 05/06/25 11:07 Pulse Ox 97 05/06/25 11:07 Oxygen Delivery Method Room Air 05/06/25 11:07 BMI result Body Mass Index 42.1 GI Inspection: Yes normal to inspection and Yes obesity Palpation (GI): Soft to palpation Extrem Right lower extremity: normal to inspection Left lower extremity: normal to inspection Assessment & Plan Assessment & Plan (1) Morbid obesity: Code(s): E66.01 - Morbid (severe) obesity due to excess calories Category: Medical Plan: Dear Fermin, It was a pleasure talking to you?today. This is the summary of what we discussed today: 1. As we discussed, based on your present BMI you are approximately 115lbs overweight. In my opinion, for any weight loss strategy to be successful should have a high probability to help you lose at least 100lbs out of 115lbs of the extra weight you carry. We discussed in detail the available therapeutic options: 1) our lifestyle intervention program that has an average weight loss of 10% in 3 months.?Some patients continue it for longer and have lost over 50lbs but this is not common. Our lifestyle program can be provided by me or our weight loss christopher, the [employer] christopher. I will provide you with a link to use the christopher if you choose to do so. We use protein shakes and protein bars to replace some of the meals of the day and cover your appetite better. We will decide together the exact combination. 2) Weight loss medications: these can be used in conjunction with our lifestyle program or you may choose to use them without following a lifestyle program from my program but your own. As we discussed, your insurance only the Phentermine pill. It is well tolerated and most common side effects include blood pressure elevation, dry mouth, difficulty sleeping and heart palpitations. Not recommended for you due to the history of A-fib. We also discussed that you can self pay for the weight loss injections and the cost is $249 for the first month and $499 for any other month thereafter. These payments go to the drug company directly and not to us. You jose g also get these medications for compound pharmacies at a [place] but I have no personal experience with the quality they provide. As we discussed, this is not a terminal superintendent solution, as most patients put all the weight back once they are off the medication. 3) We also discussed about the lap sleeve gastrectomy. In my opinion this is the best option to solve your problem based on your situation and should be used in conjunction with the two previous options. A good strategy to make this decision to proceed with surgery, as soon as you achieve a specific goal with the lifestyle intervention and medication options: to lose least 10% of your initial weight in 3 months. ?I emphasized the importance of close follow-up, adherence to instructions and good communication. The surgery does not replace the need to change your lifestlyle which is the cause of the obesity problem. The surgery provides the motivation to try again to change your lifestyle, it reduces the appetite and make the transition to a better lifestyle easier and doubles the amount of weight you would lose compared to doing the lifestyle change without the surgery. You will need to be on a liquid diet with protein shakes for 2 weeks before surgery to maximize weight loss and boost your nutritional status to recover better from surgery and also for the first two weeks after surgery to let the stomach heal before we introduce other foods. After the first 2 weeks we will introduce protein bars and soft foods like scrambled eggs, cottage cheese and yogurt and after the 6th week will introduce meat, fish and cooked vegetables in small amounts. Over time you should be able to eat everything in small amounts. Side effects like nausea, vomiting, heartburn or abdominal pain are not common in the practice unless you are not following in the practice. This operation requires lifetime commitment to following in our practice and communication with me. You will much less weight and experience side effects if you don?t communicate or not following in the practice. Complications are rare and in our practice is about 1/10 of the national average. As we disucssed, the timing of surgery in relation to the previous weight loss phase is critical for success. 4. Please buy a body composition scale Please let me know what you decide.? Dr. Coulter [phone]?
[2025-05-06 11:07] VITALS: BP 123/67; PULSE 64; TEMP 36.2; O2SAT 97; BMI 42.1
--- OUTSIDE RECORDS SUMMARY | 2025-05-06 13:09 | XMS_ITS | Clinical Summary ---
Author Organization [employer] Address [address] [place] [address] Care Team Providers Care Marketing Planning Manager Name Role Phone Unavailable Primary Care Provider [...] Tobacco Screening 1991 Family Planning (PISQ) 1994 DTaP/Tdap/Td Vaccines (1 - Tdap) 1998 Hepatitis B Vaccines (1 of 3 - 19+ 3-dose series) 1998 COVID-19 Vaccine (3 - 2024-2 6 season) 2025 04/18/2022, 04/29/2021 Influenza Vaccine (#1) 2025 04/18/2022 Zoster Vaccines (1 of 2) 2029 RSV Patients and Patients Aged 60 years or older (1 - 1-dose 75+ series) 2054 HIB Vaccines Aged Out No longer eligi ble based on patient's age to complete this topic HPV Vaccines Aged Out No longer eligi ble [...]
== END 2025-05-06 12:07 | disposition home or self-care (01) ==
LOC: HO.HBS 10:35
PROVIDERS: PCP Internal Medicine; Visit Provider Surgery
DX: E66.01 Morbid (severe) obesity due to excess calories (principal); Z68.41 Body mass index [BMI] 40.0-44.9, adult
CPT/HCPCS: 99204